=== PATIENT | female | born 1995 | race Caucasian/White ===

== ENCOUNTER 2025-02-18 10:18 | Emergency (ER) | payer OTHER, SELFPAY ==
[2025-02-18 10:25] VITALS: BP 198/113
--- NOTE | 2025-02-18 11:06 | ED.GENMED ---
History of Present Illness
General
Chief Complaint: Heart Rate Problem
Source: patient
Exam Limitations: none
Time Seen by Provider: 02/18/25 10:55
History of Present Illness
History of Present Illness:
See MDM
Past History
Past History
ED Past Medical History: None
ED Past Surgical History: None
Social History
Tobacco: Non-smoker
Alcohol: None
Phy Exam
Physical Exam
Physical Exam:
See MDM
Course
Orders/Labs/Results
Orders:
Orders
02/18/25 10:29
Electrocardiogram (*1) Urgent
Reason for Study: Chest Pain
EKG- Treatment ONCE
02/18/25 11:05
Test Result ONCE
02/18/25 11:15
Complete Blood Count/With Diff Urgent
Comprehensive Metabolic Panel Urgent
HCG, Serum Qualitative Screen Urgent
TSH Reflex To Free T4 Urgent
Abnormal Lab Results
02/18/25
11:15
Plt Count 439 H 10^3/uL
(130-400)
Glucose 123 H mg/dl
(70-99)
ALT 39 H U/L
(0-35)
02/18/25 11:15
02/18/25 11:15
Vital Signs
Initial and Last Documented VS:
Initial Vital Signs
Temp Pulse Resp BP Pulse Ox
98.3 F 112 20 198/113 97
02/18/25 10:25 02/18/25 10:25 02/18/25 10:25 02/18/25 10:25 02/18/25 10:25
Last Documented Vital Signs
Temp Pulse Resp BP Pulse Ox
98.3 F 76 24 154/113 97
02/18/25 10:25 02/18/25 11:30 02/18/25 11:30 02/18/25 11:13 02/18/25 11:08
MDM/Problems Addressed
Differential Diagnosis Includes:
Note:
CHIEF COMPLAINT(S)
Heart palpitations
HISTORY OF PRESENT ILLNESS
The patient is a 30-year-old female presenting with episodes of heart palpitations. She reports feeling as if her heart had stopped. This episode has occurred before a couple of years ago, but only once. The patient has not been on any medications
nor has there been increased caffeine use or alcohol consumption. The patient acknowledged feeling anxious, which she attributed to the palpitations, as she does have an underlying anxiety condition. Currently, the EKG looks normal, but further
evaluation including blood work and monitoring is planned to identify any underlying pathologies such as arrhythmias (e.g., atrial fibrillation or supraventricular tachycardia). The patient was also informed about the potential for a
pheochromocytoma as a rare consideration should the workup be negative. The treatment plan includes monitoring and possibly discussing the use of a Holter monitor with her primary physician should the episodes recur.
PHYSICAL EXAM
General: Alert, no acute distress.
Skin: Warm, dry.
Head: Normocephalic, atraumatic
Neck: Appears supple, trachea midline.
Eyes, Ears, Nose, Mouth, and Throat: Moist mucous membranes
Cardiovascular: No signs of cyanosis. Regular rate and rhythm
Respiratory: Respirations are non-labored. Lungs clear
Abdomen: Non-distended
Musculoskeletal: No deformities
Neurological: No focal neurological deficit observed.
Psychiatric: Mildly anxious
ELECTROCARDIOGRAM (EKG)
My independent EKG interpretation is that there were no acute abnormalities. It suggests possible premature atrial contractions, which are generally considered benign.
PLAN
Conduct basic blood work to evaluate for any abnormalities, including thyroid function.
Monitor the patient for potential arrhythmic episodes.
Discuss the option of a Holter monitor with the primary care provider if episodes persist.
Ensure follow-up with primary care for potential anxiety management and investigation of rare conditions if standard workup returns negative.
DIFFERENTIAL DIAGNOSIS
The Differential Diagnosis includes, in no particular order and is not limited to:
- Anxiety-induced palpitations
- Premature atrial contractions
- Atrial fibrillation
- Supraventricular tachycardia (SVT)
- Pheochromocytoma
- Electrolyte imbalance
- Hyperthyroidism
- Mitral valve prolapse
- Coronary artery disease
- Panic disorder
SUMMARY OF ENCOUNTER
The patient was seen in the emergency department for heart palpitations with a concern that her heart occasionally stops. An EKG was performed revealing possible premature atrial contractions but no acute findings. Blood work was initiated to
exclude underlying arrhythmogenic causes or metabolic imbalances, while continuous monitoring was employed for arrhythmias. In light of benign initial findings, outpatient follow-up with the primary care provider was advised for further evaluation
and potential use of a Holter monitor.
MEDICATION RECONCILIATION
The patient reported not taking any medications.
MEDICAL DECISION MAKING
-Number and Complexity of Problems Addressed:
Chronic conditions affecting care include Anxiety. The Differential Diagnosis includes: Anxiety-induced palpitations, Premature atrial contractions, Atrial fibrillation, Supraventricular tachycardia (SVT), Pheochromocytoma, Electrolyte imbalance,
Hyperthyroidism, Mitral valve prolapse, Coronary artery disease, Panic disorder.
-Data:
Category 1
Basic blood work and EKG have been ordered and independently interpreted.
Category 2
Clinical information was obtained from the patient. No external records were mentioned or reviewed.
-Risk:
Consideration of Holter monitor was discussed for outpatient management if arrhythmic symptoms return. Given current findings and patient stability, outpatient management with primary care follow-up was deemed appropriate.
SUMMARY OF ENCOUNTER
The patient, a 30-year-old female, was seen in the emergency department for episodes of heart palpitations, feeling as if her heart occasionally stops. An EKG was performed, revealing possible premature atrial contractions. Initial blood work was
initiated to exclude arrhythmogenic causes or metabolic imbalances, but results were not detailed in the current encounter. Given the negative findings and patient stability during the visit, outpatient follow-up was advised for further evaluation
and potential use of a Holter monitor.
PLAN
Conduct basic blood work to evaluate any abnormalities, including thyroid function. Monitor for potential arrhythmic episodes. Discuss the option of a Holter monitor with the primary care provider if episodes persist. Ensure follow-up with primary
care for potential anxiety management and investigation of rare conditions if the standard workup returns negative.
INDEPENDENT REVIEW OF LABS AND INTERPRETATION OF TESTS
My independent EKG interpretation is that there were no acute abnormalities but evidence of intermittent premature atrial complexes (PACs).
PATIENT EDUCATION AND COUNSELING
The patient was informed about the benign nature of preliminary findings and the importance of outpatient follow-up for continued monitoring of symptoms and further diagnostic testing, such as a Holter monitor.
FOLLOW-UP INSTRUCTIONS
The patient was advised to follow up with her primary care provider to schedule further evaluations and consider the use of a Holter monitor if episodes persist.
MEDICAL DECISION MAKING
- Number and Complexity of Problems Addressed:
Chronic conditions affecting care include Anxiety. Differential diagnosis includes Anxiety-induced palpitations, Premature atrial contractions, Atrial fibrillation, Supraventricular tachycardia (SVT), Pheochromocytoma, Electrolyte imbalance,
Hyperthyroidism, Mitral valve prolapse, Coronary artery disease, Panic disorder.
- Data:
Category 1
My independent interpretation of EKG shows sinus rhythm with possible premature atrial contractions, which are generally considered benign.
- Risk:
Consideration of Admission/Observation: Escalation of care including admission/observation was considered given the complexity and risk of the patients presenting complaint, exam findings, and/or their underlying comorbidities. However, ultimately I
feel the patient is safe for outpatient management with close follow-up. Reasoning: Work-up reassuring, does not reveal any acute life/organ-threatening processes, patients symptoms well controlled upon reevaluation, reexamination is reassuring,
vitals are stable, patient agreeable with discharge, reliable for follow-up.
DIAGNOSIS
- Premature atrial contractions (I49.1)
- Anxiety disorder (F41.9)
*Pulse Oximetry
SaO2: 97
Oxygen Mode of Delivery: Room air
Patient hypoxic: no
*Critical Care Note
Total Time (30-74mins, 75-104mins- exclusive of procedures): Not Applicable
ED Attending Note
-
Portions of this chart may have been created with voice recognition software.� Occasional wrong word or��sound alike� substitutions may have occurred due to the inherent limitations of voice recognition software.
Discharge Plan
Departure
Patient Disposition: Home (Routine Discharge)
Date of Disposition: 02/18/25
Time of Disposition: 12:44
Patient with high blood pressure during this ER visit?: Yes
Discharge Problem:
Heart palpitations
Instructions: Palpitations (DC), BLOOD PRESSURE
Referrals:
No Pcp Selected, [Other]
Charley Anderson MD [Family Provider, Family Practice]
Activity Restrictions/Additional Instructions:
Please return for any worsening symptoms.
You may return at any time if you have further concerns.
Please follow up with your doctor at the first available appointment, preferably this week. Please discuss obtaining a Holter monitor and to have your symptoms reassessed.
Thank you for choosing [facility].
Interventions
Interventions:
*Risk Screen - Suicide Last Done: 02/18/25 10:25
*General Assessment Last Done: 02/18/25 10:25
*Neglect/Abuse Screening Last Done: 02/18/25 10:25
ED- Cardiac Assessment Last Done: 02/18/25 10:58
ED- Pulmonary Assessment Last Done: 02/18/25 10:58
Discharge Date and Time
Print Language: GREENLANDIC
[2025-02-18 11:13] VITALS: BP 154/113
[2025-02-18 11:29] LABS: Hematocrit 42.9 % (37.0-47.0); Hemoglobin 14.3 g/dL (12.0-16.0); Mean Corp Hgb Conc. 33.3 g/dL (33.0-37.0); Mean Corpuscular Volume 84.4 fL (81.0-99.0); Nucleated Red Blood Cells % 0 %; Platelet Count 439 10^3/uL (130-400); Red Cell Dist. Width 13.1 % (11.5-14.5)
[2025-02-18 11:42] LABS: HCG, Serum Qualitative Screen Negative
[2025-02-18 11:47] LABS: ALT (SGPT) 39 U/L (0-35); AST (SGOT) 27 U/L (14-36); Albumin 4.6 g/dl (3.5-5.0); Alkaline Phosphatase 52 U/L (38-126); Blood Urea Nitrogen 11 mg/dl (7-17); Calcium 9.8 mg/dl (8.4-10.2); Carbon Dioxide 23 mmol/L (22-30); Chloride 107 mmol/L (98-107); Glucose 123 mg/dl (70-99); Potassium 3.8 mmol/L (3.5-5.1); Sodium 135 mmol/L (135-145); Total Protein 7.3 g/dl (6.3-8.2); eGFR > 60.00
== END 2025-02-18 13:20 | disposition home or self-care (01) ==
LOC: EMR 10:18
PROVIDERS: EMERGENCY PHYSICIAN Student in an Organized Health Care Education/Training Program; FAMILY PHYSICIAN Family Medicine
DX: R00.2 Palpitations (principal); F41.9 Anxiety disorder, unspecified; I49.1 Atrial premature depolarization
CPT/HCPCS: 99284; 80053; 84443; 84703; 85025; 93005